=== PATIENT | female | born 1945 | race Caucasian/White ===

== ENCOUNTER → 2017-02-11 | Outpatient (CLI) | payer BC, MEDICARE ==
[~2017-02-11] MED LIST: CORDARONE 200M200 MG PO; ELIQUIS5 MG PO; LOPRESSOR 25 MG25 MG PO; NORCO 5-325 TA1 EACH PO; NORCO 7.5-3251 EACH PO; PROTONIX40 MG PO; PROVENTIL HFA6.7 GM INH; SYMBICORT 80-10.2 GM INH; VITAMIN D50000 UNIT PO; VOLTAREN EC 7575 MG PO; ZOFRAN4 MG PO
[2017-02-11 16:28] LABS: HEMOGLOBIN 12.6 gm/dl (12.3-15.3); RED BLOOD COUNT 4.63 M/UL (4.00-5.10); WHITE BLOOD COUNT 6.6 K/UL (4.5-11.0)
[2017-02-11 16:43] LABS: BUN/CREATININE RATIO 22 (0-10)
== END ==
LOC: OPSV 15:59
PROVIDERS: Internal Medicine
DX: E86.0 Dehydration (principal)
CPT/HCPCS: 36415; 80048; 85027; 96360; 96361

== ENCOUNTER 2021-04-19 16:15 | Emergency (ER) | payer BC, MEDICARE ==
[~2021-04-19 16:15] MED LIST changes: +LEVAQUIN500 MG PO; +LORTAB 5-325 M1 EACH PO; +MEDROL4 MG PO; +METOPROLOL SUCC25 MG PO; +SYNTHROID88 MCG PO; +TESSALON PERLE100 MG PO; +VENTOLIN HFA 66.7 GM INH; +VIBRAMYCIN100 MG PO; +VITAMIN D250000 UNIT PO; -VITAMIN D50000 UNIT PO
[2021-04-19 17:34] LABS: HEMOGLOBIN 12.6 gm/dl (12.3-15.3); RED BLOOD COUNT 4.64 M/UL (4.00-5.10); WHITE BLOOD COUNT 3.9 K/UL (4.5-11.0)
[2021-04-19] MEDS ORDERED: CLEOCIN HCL150 MG PO (19:24)
== END 2021-04-19 19:30 | disposition home or self-care (01) ==
LOC: ER1 16:15
PROVIDERS: Physician Assistant
DX: L03.115 Cellulitis of right lower limb (principal); R60.0 Localized edema; I48.91 Unspecified atrial fibrillation; K21.9 Gastro-esophageal reflux disease without esophagitis; Z88.0 Allergy status to penicillin; Z88.8 Allergy status to other drugs, medicaments and biological substances
CPT/HCPCS: 80053; 85025; 99283

== ENCOUNTER → 2021-05-12 | Outpatient (CLI) | payer BC, MEDICARE ==
[~2021-05-12] MED LIST changes: +CLEOCIN HCL150 MG PO
== END ==
LOC: KOH-I 12:54
DX: R05 Cough (principal); J98.11 Atelectasis
CPT/HCPCS: 71046

== ENCOUNTER 2021-05-14 15:12 | Emergency (ER) | payer BC, MEDICARE ==
[~2021-05-14] VITALS: Ht 170.2 cm; Wt 61.2 kg
== END 2021-05-14 18:05 | disposition home or self-care (01) ==
LOC: ER1 15:12
DX: Z23 Encounter for immunization (principal); U07.1 COVID-19; I48.91 Unspecified atrial fibrillation; Z90.49 Acquired absence of other specified parts of digestive tract; Z88.0 Allergy status to penicillin; Z88.8 Allergy status to other drugs, medicaments and biological substances
CPT/HCPCS: 99283; M0243